=== PATIENT | female | born 2000 | race Caucasian/White ===

== ENCOUNTER 2018-04-18 20:17 | Emergency (ER) | payer BC ==
[2018-04-18] MEDS: KETOROLAC 15 MG INJ IM (21:44)
== END 2018-04-18 22:26 | disposition home or self-care (01) ==
LOC: FTE 20:17
DX: R51 Headache (principal); J45.909 Unspecified asthma, uncomplicated
CPT/HCPCS: 81025; 96372; 99284-25

== ENCOUNTER 2018-08-24 12:02 | Emergency (ER) | payer BC ==
[2018-08-24] MEDS: IBUPROFEN 600 MG TAB PO (13:17)
== END 2018-08-24 13:30 | disposition home or self-care (01) ==
LOC: FTE 12:02
DX: N64.4 Mastodynia (principal); J45.909 Unspecified asthma, uncomplicated
CPT/HCPCS: 99282

== ENCOUNTER 2019-07-26 00:06 | Emergency (ER) | payer BC ==
[2019-07-26] MEDS: ONDANSETRON 4 MG INJ IV (01:54)
[2019-07-26] MEDS: SOD CHLORIDE 0.9% 1,000 ML IV (01:54)
[2019-07-26] MEDS: morphine 2 MG INJ IV (01:54)
[2019-07-26 01:55] LABS: ADD MAN DIFF? NO
[2019-07-26 01:59] LABS: BASOPHILS % 0.4 % (0.0-2.0); EOSINOPHILS # 0.3 10^3/ul (0.0-0.5); EOSINOPHILS % 3.6 % (0.0-7.0); HEMATOCRIT 43.4 % (37.0-47.0); LYMPHOCYTES # 2.3 10^3/ul (0.8-2.9); LYMPHOCYTES % 30.8 % (18.0-55.0); MEAN CORPUSCULAR HEMOGLOBIN 26.3 pg (29.0-33.0); MEAN CORPUSCULAR HGB CONC 32.3 g/dl (32.0-37.0); MEAN CORPUSCULAR VOLUME 81.4 fl (72.0-104.0); MEAN PLATELET VOLUME 9.7 fl (7.4-10.4); MONOCYTE # 0.6 10^3/ul (0.3-0.9); MONOCYTES % 7.7 % (0.0-13.0); NEUTROPHIL # 4.3 10^3/ul (1.6-7.5); NEUTROPHILS % 57.2 % (30.0-74.0); PLATELET COUNT 240 10^3/UL (140-415); RED BLOOD COUNT 5.33 10^6/ul (4.20-5.40); RED CELL DISTRIBUTION WIDTH 14.5 % (11.5-14.5)
[2019-07-26 01:59] LABS: WHITE BLOOD COUNT 7.6 10^3/ul (4.8-10.8)
[2019-07-26 02:03] LABS: ADD UMIC YES; UR ASCORBIC ACID NEGATIVE (NEGATIVE); UR BILIRUBIN (Dip) NEGATIVE (NEGATIVE); UR BLOOD (Dip) 2+ mg/dL (NEGATIVE); UR CLARITY SLIGHTLY CLOUDY (CLEAR); UR COLOR YELLOW (YELLOW); UR GLUCOSE (Dip) NEGATIVE (NEGATIVE); UR KETONES (Dip) NEGATIVE (NEGATIVE); UR LEUKOCYTE ESTERASE (Dip) TRACE Leu/ul (NEGATIVE); UR MUCUS FEW /HPF (NONE SEEN); UR NITRITE (Dip) NEGATIVE (NEGATIVE); UR RBC 4 /HPF (0-5); UR SPECIFIC GRAVITY (Dip) 1.028 (1.003-1.030); UR SQUAMOUS EPITHELIAL CELL FEW /HPF (FEW); UR TOTAL PROTEIN (Dip) NEGATIVE (NEGATIVE); UR UROBILINOGEN (Dip) NEGATIVE (NEGATIVE); UR WBC 7 /HPF (0-5)
[2019-07-26 02:31] LABS: ALANINE AMINOTRANSFERASE 25 IU/L (13-69); ALBUMIN 4.3 g/dl (3.3-4.9); ALBUMIN/GLOBULIN RATIO 1.16; ALKALINE PHOSPHATASE 99 IU/L (42-121); ANION GAP 6 (5-13); ASPARTATE AMINO TRANSFERASE 26 IU/L (15-46); BILIRUBIN,INDIRECT 0.7 mg/dl (0-1.1); BILIRUBIN,TOTAL 0.7 mg/dl (0.2-1.3); BLOOD UREA NITROGEN 16 mg/dl (7-20); CALCIUM 9.5 mg/dl (8.4-10.2); CARBON DIOXIDE 29 mmol/L (21-31); CHLORIDE 103 mmol/L (97-110); CREATININE 0.87 mg/dl (0.44-1.00); Estimated GFR > 60 mL/min (>60); GLUCOSE 95 mg/dl (70-220); LIPASE 114 U/L (23-300); POTASSIUM 3.6 mmol/L (3.5-5.1); SODIUM 138 mmol/L (135-144)
== END 2019-07-26 03:16 | disposition home or self-care (01) ==
LOC: FTE 00:06
DX: R10.13 Epigastric pain (principal); J45.909 Unspecified asthma, uncomplicated
CPT/HCPCS: 36415; 76705; 80053; 81001; 81025; 83690; 84702; 85025; 96361; 96374; 96375; 99285-25